=== PATIENT | female | born 2000 | race Caucasian/White ===

== ENCOUNTER → 2023-01-12 | Outpatient (CLI) | payer BC ==
--- NOTE | 2023-01-12 15:40 | Diagnostic Imaging Report ---
EXAM: MRI left foot without contrast. DATE: January 12, 2023. INDICATION: 22-year-old female, left foot pain. COMPARISON: None. TECHNIQUE: Multiple noncontrast MRI sequences of the foot were obtained. FINDINGS: The Lisfranc ligament proper is intact. The imaged portions of the peroneus longus and peroneus brevis tendons are intact. The imaged portions of the anterior extensor tendons and posterior flexor tendons are intact. The imaged portions of the plantar fascia are intact. There is no acute fracture, bone contusion, stress reaction, or other notable bone marrow signal abnormality. The joint spaces are well preserved. There is no joint effusion. There is unremarkable soft tissue assessment. IMPRESSION: Unremarkable MRI of the left foot. Dictated by: Dictated on workstation # [id number]
== END ==
LOC: RAD 14:21
PROVIDERS: ATTEND Nurse Practitioner Family
DX: M79.672 Pain in left foot (principal)